=== PATIENT | female | born 1950 | race Two or more races ===

== ENCOUNTER → 2017-09-17 | Outpatient (CLI) | payer OTHER | END | disposition home or self-care (01) | LOC: RAD 11:39 | DX: S82.035A Nondisplaced transverse fracture of left patella, initial encounter for closed fracture (principal) ==

== ENCOUNTER 2017-10-15 10:21 | Outpatient (CLI) | payer OTHER | END 2017-10-15 10:31 | disposition home or self-care (01) | LOC: RAD 501 10:21 | DX: S82.035D Nondisplaced transverse fracture of left patella, subsequent encounter for closed fracture with routine healing (principal) ==

== ENCOUNTER 2017-10-17 08:28 | Outpatient (CLI) | payer OTHER | END 2017-10-17 08:34 | disposition home or self-care (01) | LOC: LAB 08:28 | DX: E55.9 Vitamin D deficiency, unspecified (principal); M85.88 Other specified disorders of bone density and structure, other site; E88.89 Other specified metabolic disorders; M81.8 Other osteoporosis without current pathological fracture; E83.42 Hypomagnesemia; E56.1 Deficiency of vitamin K ==

== ENCOUNTER → 2019-01-13 | Outpatient (CLI) | payer OTHER | END | disposition home or self-care (01) | LOC: RAD 501 09:19 | DX: S72.465A Nondisplaced supracondylar fracture with intracondylar extension of lower end of left femur, initial encounter for closed fracture (principal) ==

== ENCOUNTER 2019-02-11 11:21 | Outpatient (CLI) | payer OTHER | END 2019-02-11 11:24 | disposition home or self-care (01) | LOC: RAD 11:21 | DX: M25.562 Pain in left knee (principal); S72.465A Nondisplaced supracondylar fracture with intracondylar extension of lower end of left femur, initial encounter for closed fracture ==

== ENCOUNTER 2022-11-24 18:44 | Emergency (ER) | payer OTHER ==
[~2022-11-24] VITALS: Ht 157.5 cm; Wt 59.4 kg
[2022-11-24] MEDS ORDERED: REVLIMID10 MG PO (19:38)
[2022-11-24] MEDS ORDERED: SYNTHROID50 MCG PO (19:39)
== END 2022-11-25 14:45 | disposition home or self-care (01) ==
LOC: ER 18:44
DX: S32.492A Other specified fracture of left acetabulum, initial encounter for closed fracture (principal); W19.XXXA Unspecified fall, initial encounter; Y93.89 Activity, other specified; Y92.89 Other specified places as the place of occurrence of the external cause; Y99.9 Unspecified external cause status

== ENCOUNTER 2022-12-24 09:46 | Outpatient (CLI) | payer OTHER ==
[~2022-12-24 09:46] MED LIST: REVLIMID10 MG PO; SYNTHROID50 MCG PO
== END 2022-12-24 09:51 | disposition home or self-care (01) ==
LOC: RAD 09:46
PROVIDERS: ATTEND Orthopaedic Surgery
DX: M25.552 Pain in left hip (principal); S32.415A Nondisplaced fracture of anterior wall of left acetabulum, initial encounter for closed fracture

== ENCOUNTER 2023-02-05 10:16 | Outpatient (CLI) | payer OTHER | END 2023-02-05 10:58 | disposition home or self-care (01) | LOC: RAD 10:16 | PROVIDERS: ATTEND Internal Medicine Hematology & Oncology | DX: S82.892A Other fracture of left lower leg, initial encounter for closed fracture (principal); D47.2 Monoclonal gammopathy; I10 Essential (primary) hypertension; E03.8 Other specified hypothyroidism; E55.9 Vitamin D deficiency, unspecified ==

== ENCOUNTER 2023-07-04 09:57 | Outpatient (CLI) | payer OTHER | END 2023-07-04 10:05 | disposition home or self-care (01) | LOC: TOM 09:57 | PROVIDERS: ATTEND Physical Medicine & Rehabilitation | DX: M25.552 Pain in left hip (principal) ==

== ENCOUNTER 2024-05-19 11:22 | Outpatient (CLI) | payer OTHER | END 2024-05-19 11:25 | disposition home or self-care (01) | LOC: RAD 11:22 | PROVIDERS: ATTEND Orthopaedic Surgery | DX: M25.561 Pain in right knee (principal) ==

== ENCOUNTER → 2024-06-28 06:51 | Outpatient (CLI) | payer OTHER ==
[~2024-06-28 06:51] MED LIST changes: +KETO10TA2 PO; +VOLTAREN ARTHRI20 GM TOP
[2024-06-28 07:48] LABS: HEMATOCRIT 37.1 % (36.0-45.00); HEMOGLOBIN 12.6 g/dL (12.0-15.00); MEAN CELL VOLUME 92.8 fL (80.00-100.00); MEAN CORPUSCULAR HEMOGLOBIN 31.6 pg (27.00-32.0); PLATELET COUNT 171 K/uL (150-450); RED CELL DISTRIBUTION WIDTH 16.7 % (11.5-14.5)
[2024-06-28 08:08] LABS: URINE APPEARANCE Clear; URINE BILIRRUBIN Negative (NEGATIVE); URINE BLOOD Trace; URINE COLOR Yellow; URINE GLUCOSE Negative (NEGATIVE); URINE KETONE Negative (NEGATIVE); URINE LEUKOCYTE Negative; URINE NITRATE Negative; URINE PROTEIN Negative (NEGATIVE); URINE UROBILINOGEN 0.2 E.U./dl
[2024-06-28 08:10] LABS: PARTIAL THROMBOPLASTIN TIME 27.9 SECONDS (22.0-34.0); PROTHROMBIN TIME 10.9 SECONDS (9.0-11.5)
[2024-06-28 08:12] LABS: URINE BACTERIA 20.1 uL (0.0-1933); URINE WBC 4.1 uL (0.0-23.2)
[2024-06-28 08:44] LABS: ALBUMIN 3.9 gm/dL (3.4-5.0); BILIRUBIN TOTAL 0.48 mg/dL (0.3-1.2); CALCIUM 10.1 mg/dL (8.5-10.1); CREATININE SERUM 1.01 mg/dL (0.55-1.02); GFR 53.29; POTASSIUM 5.02 mEq/L (3.5-5.1); TOTAL PROTEIN 7.9 gm/dL (6.4-8.2)
[2024-06-28 09:05] LABS: COL EPI 80 SECONDS (82-175)
== END | disposition home or self-care (01) ==
LOC: RAD 06:51
PROVIDERS: ATTEND Orthopaedic Surgery
DX: D64.9 Anemia, unspecified (principal); E88.89 Other specified metabolic disorders; D68.8 Other specified coagulation defects; N39.0 Urinary tract infection, site not specified; Z22.322 Carrier or suspected carrier of Methicillin resistant Staphylococcus aureus; I10 Essential (primary) hypertension; Z76.89 Persons encountering health services in other specified circumstances

== ENCOUNTER 2024-06-28 08:42 | Emergency (ER) | payer OTHER ==
[~2024-06-28] VITALS: Ht 160 cm; Wt 55.8 kg
[~2024-06-28 08:42] MED LIST changes: -KETO10TA2 PO; -VOLTAREN ARTHRI20 GM TOP
[2024-06-28] MEDS ORDERED: KETOROLAC TROMETHAMINE 60 MG VIAL IM ONE (10:00)
[2024-06-28] MEDS ORDERED: VOLTAREN ARTHRI20 GM TOP (11:30)
[2024-06-28] MEDS ORDERED: KETO10TA2 PO (11:30)
== END 2024-06-28 11:36 | disposition home or self-care (01) ==
LOC: ER 08:44
DX: S89.81XA Other specified injuries of right lower leg, initial encounter (principal); W19.XXXA Unspecified fall, initial encounter; Y93.89 Activity, other specified; Y92.89 Other specified places as the place of occurrence of the external cause; Y99.8 Other external cause status
CPT/HCPCS: 73565; 96372; 99283; J1885

== ENCOUNTER 2024-06-29 08:56 | Outpatient (CLI) | payer OTHER ==
[~2024-06-29 08:56] MED LIST changes: +KETO10TA2 PO; +VOLTAREN ARTHRI20 GM TOP
== END 2024-06-29 08:58 | disposition home or self-care (01) ==
LOC: TOM 08:56
PROVIDERS: ATTEND Orthopaedic Surgery
DX: M25.561 Pain in right knee (principal)

== ENCOUNTER 2024-07-07 08:35 | Outpatient (CLI) | payer OTHER | END 2024-07-07 08:41 | disposition home or self-care (01) | LOC: RAD 08:35 | PROVIDERS: ATTEND Orthopaedic Surgery | DX: S82.121A Displaced fracture of lateral condyle of right tibia, initial encounter for closed fracture (principal) ==

== ENCOUNTER 2024-07-23 16:44 | Inpatient (IN) | payer OTHER ==
[~2024-07-23] VITALS: Ht 160 cm; Wt 54.4 kg
[2024-07-23 14:03] VITALS: BP 130/58
[2024-07-26] MEDS ORDERED: VANCOMYCIN HCL 1,000 MG VIAL IR ONE (13:45)
[2024-07-26] MEDS ORDERED: EPINEPHRINE HCL/PF 1 MG/ML AMPUL IR ONE (13:45)
[2024-07-26] MEDS ORDERED: BUPIVACAINE HCL 30 ML VIAL IJ ONE (13:45)
[2024-07-26] MEDS ORDERED: LIDOCAINE HCL 1%/EPINEPHRINE 20ML VIAL IJ ONE (13:45)
[2024-07-26] MEDS ORDERED: POLYMYXIN B SULFATE 500,000 U VIAL IR ONE (13:45)
[2024-07-26] MEDS ORDERED: TRANEXAMIC ACID 100MG/1ML (1000MG) AMPUL IV ONE (13:45)
[2024-07-26] MEDS ORDERED: KETOROLAC TROMETHAMINE 60 MG VIAL IM ONE (13:45)
[2024-07-26] MEDS ORDERED: MORPHINE SULFATE 4 MG/ML VIAL IV ONE (13:45)
[2024-07-26] MEDS ORDERED: CEFAZOLIN SODIUM 1,000 MG VIAL IV ONE (13:45)
[2024-07-26] MEDS ORDERED: FORTEO2.4 ML (14:10)
[2024-07-26] MEDS ORDERED: MORPHINE SULFATE 2 MG/ML CARTRIDGE IV ONE (15:25)
[2024-07-26] MEDS ORDERED: PANTOPRAZOLE SODIUM 40 MG TABLET.DR PO SCH (15:54)
[2024-07-26] MEDS ORDERED: TRAMADOL HCL 50 MG TABLET PO PRN (16:00)
[2024-07-26] MEDS ORDERED: MEPERIDINE HCL/PF 50 MG/ML VIAL IM PRN (16:00)
[2024-07-26] MEDS ORDERED: ONDANSETRON HCL 2 MG/ML VIAL IV PRN (16:00)
[2024-07-26] MEDS ORDERED: ONDANSETRON 4 MG TAB.RAPDIS PO PRN (16:00)
[2024-07-26] MEDS ORDERED: PROMETHAZINE HCL 50 MG/ML AMPUL IM PRN (16:00)
[2024-07-26] MEDS ORDERED: SODIUM CHLORIDE 0.45 % 1,000 ML IV SCH (16:00)
[2024-07-26] MEDS ORDERED: CEFAZOLIN SODIUM 1,000 MG VIAL IV SCH (17:00)
[2024-07-26] MEDS ORDERED: ACETAMINOPHEN 325 MG TABLET PO SCH (17:00)
[2024-07-26] MEDS ORDERED: CELECOXIB 200 MG CAPSULE PO SCH (17:00)
[2024-07-26] MEDS ORDERED: KETOROLAC TROMETHAMINE 10 MG TABLET PO SCH (21:00)
[2024-07-27 00:15] VITALS: BP 113/55; O2SAT 100
[2024-07-27 05:40] LABS: HEMATOCRIT 27.9 % (36.0-45.00); MEAN CELL VOLUME 92.6 fL (80.00-100.00); MEAN CORPUSCULAR HGB CONC 34.2 g/dl (32.0-36.0); PLATELET COUNT 151 K/uL (150-450); RED BLOOD COUNT 3.01 M/uL (4.00-6.00); RED CELL DISTRIBUTION WIDTH 15.7 % (11.5-14.5)
[2024-07-27 05:47] LABS: HEMOGLOBIN 9.5 g/dL (12.0-15.00); MEAN CORPUSCULAR HEMOGLOBIN 31.5 pg (27.00-32.0)
[2024-07-27] MEDS ORDERED: Cyanocobalamin/Mecobalamin 1 TAB.SL SL SCH (09:00)
[2024-07-27] MEDS ORDERED: SOD FERRIC GLUC COMPLX/SUCROSE 62.5 MG in 0.9 % SODIUM CHLORIDE 50 ML IV SCH (09:00)
[2024-07-27] MEDS ORDERED: RIVAROXABAN 10 MG TAB PO SCH (09:00)
[2024-07-27 09:44] VITALS: BP 111/53; O2SAT 98
[2024-07-27 16:00] VITALS: BP 109/55; O2SAT 97
[2024-07-28 00:30] VITALS: BP 109/62; O2SAT 99
[2024-07-28] MEDS ORDERED: LEVOTHYROXINE SODIUM 50 MCG TABLET PO SCH (06:00)
[2024-07-28 07:00] LABS: HEMATOCRIT 27.6 % (36.0-45.00); HEMOGLOBIN 9.4 g/dL (12.0-15.00); MEAN CELL VOLUME 93.2 fL (80.00-100.00); MEAN CORPUSCULAR HEMOGLOBIN 31.9 pg (27.00-32.0); MEAN CORPUSCULAR HGB CONC 34.2 g/dl (32.0-36.0); PLATELET COUNT 138 K/uL (150-450); RED BLOOD COUNT 2.96 M/uL (4.00-6.00); RED CELL DISTRIBUTION WIDTH 16.4 % (11.5-14.5)
[2024-07-28] MEDS ORDERED: SENNA/DOCUSATE SODIUM 1 TAB TABLET PO SCH (09:00)
[2024-07-28 10:32] VITALS: BP 96/51; O2SAT 94
[2024-07-28 12:19] LABS: URINE APPEARANCE Clear; URINE BILIRRUBIN Negative (NEGATIVE); URINE BLOOD Trace; URINE COLOR Yellow; URINE GLUCOSE Negative (NEGATIVE); URINE KETONE Negative (NEGATIVE); URINE LEUKOCYTE Negative; URINE NITRATE Negative; URINE PROTEIN Negative (NEGATIVE); URINE UROBILINOGEN 0.2 E.U./dl
[2024-07-28 12:23] LABS: URINE BACTERIA 8.8 uL (0.0-1933); URINE EPITHELIAL CELLS 4.3 uL (0.0-38.8); URINE RBC 3.6 uL (0.0-20.8)
[2024-07-28 12:26] LABS: URINE CAST 0.45 uL (0.0-1.40); URINE WBC 1.5 uL (0.0-23.2)
[2024-07-28 15:12] LABS: ALBUMIN 2.7 gm/dL (3.4-5.0); BILIRUBIN TOTAL 0.48 mg/dL (0.3-1.2); CALCIUM 8.9 mg/dL (8.5-10.1); CREATININE SERUM 0.9 mg/dL (0.55-1.02); GFR 60.88; GLOBULINA 3.4 G/DL (2.4-3.5); POTASSIUM 4.01 mEq/L (3.5-5.1); TOTAL PROTEIN 6.1 gm/dL (6.4-8.2)
[2024-07-28 16:00] VITALS: BP 112/61; O2SAT 97
[2024-07-29] VITALS: BP 123/61; O2SAT 96
[2024-07-29 08:00] VITALS: BP 118/57; O2SAT 98
== END 2024-07-29 12:50 | DRG 470 ==
LOC: O/R 07-26 09:36 → SURH 07-26 11:49
PROVIDERS: ADMIT Orthopaedic Surgery; ATTEND Orthopaedic Surgery
PROC: 0SRC0J9 Replacement of Right Knee Joint with Synthetic Substitute, Cemented, Open Approach (ICD-10-PCS; principal; 2024-07-26 14:30)
DX: M17.11 Unilateral primary osteoarthritis, right knee (principal); S82.141A Displaced bicondylar fracture of right tibia, initial encounter for closed fracture

== ENCOUNTER 2024-08-23 12:52 | Outpatient (CLI) | payer OTHER ==
[~2024-08-23 12:52] MED LIST changes: +FORTEO2.4 ML
== END 2024-08-23 13:03 | disposition home or self-care (01) ==
LOC: RAD 12:52
PROVIDERS: ATTEND Orthopaedic Surgery
DX: Z96.651 Presence of right artificial knee joint (principal)